=== PATIENT | male | born 1995 | race Caucasian/White ===

== ENCOUNTER 2016-10-06 13:51 | Emergency (ER) | payer SELFPAY | END 2016-10-06 14:33 | disposition left against medical advice (07) | LOC: MED 13:51 | DX: Z53.21 Procedure and treatment not carried out due to patient leaving prior to being seen by health care provider (principal) ==

== ENCOUNTER 2017-03-12 08:04 | Emergency (ER) | payer OTHER ==
[~2017-03-12] VITALS: Ht 172.7 cm; Wt 61.2 kg
[2017-03-12 08:29] VITALS: BP 143/70
--- NOTE | 2017-03-12 08:32 | NUR ---
Patient to bed 7 at this time.
--- NOTE | 2017-03-12 08:33 | NUR ---
21/M BIB SELF /C/O RIGHT FOREARM PAIN , BRUISE & SMALL SWELLING S/P FALL 3 DAYS AGO. PT DENIES ANY MEDICAL HX. PT STATES PT FELL & RFA HIT THE METAL; DENIES LOC . DENIES N/V/D; AAOX4 WITH EVEN AND STEADY GAIT; LUNGS CLEAR BL; HR EVEN AND REGULAR; PATIENT STATES PAIN OF 7/10 AT THIS TIME;PATIENT POSITIONED FOR COMFORT; HOB ELEVATED; BEDRAILS UP X2; BED DOWN. ER MD MADE AWARE OF PT STATUS.
--- NOTE | 2017-03-12 08:45 | NUR ---
Patient being evaluated by DR MORAN at bedside.
[2017-03-12] MEDS ORDERED: HYDROcodone/APAP 5/325 MG 1 TAB TAB PO ONE (08:50)
--- NOTE | 2017-03-12 09:17 | NUR ---
X RAY AT BEDSIDE.
--- NOTE | 2017-03-12 10:23 | NUR ---
Patient appears to be resting comfortably in bed. Vital Signs within normal limits. Respirations even and unlabored.WILL CONTINUE TO MONITOR.
--- NOTE | 2017-03-12 10:23 | NUR ---
Patient being reevaluated by DR MORAN at bedside.
--- NOTE | 2017-03-12 10:25 | NUR ---
splint done by MAIRA CARTY.
[2017-03-12 10:30] VITALS: BP 108/70
== END 2017-03-12 10:30 | disposition home or self-care (01) ==
LOC: MED 08:04
DX: M79.631 Pain in right forearm (principal)
CPT/HCPCS: 29125; 73090; 73130; 99284; Q0092